=== PATIENT | female | born 1990 | race Two or more races ===

== ENCOUNTER 2019-06-25 19:14 | Emergency (ER) | payer MEDICAID, OTHER ==
[~2019-06-25] VITALS: Ht 157.5 cm; Wt 58.1 kg
[2019-06-25] MEDS ORDERED: diphenhydrAMINE HCL 50 MG/ML VIAL ONE (19:26)
[2019-06-25] MEDS ORDERED: OLANZAPINE 10 MG VIAL IM ONE ×2 (19:27→19:30)
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
[2019-06-25] MEDS ORDERED: diphenhydrAMINE HCL 50 MG/ML VIAL IM ONE (19:30)
[2019-06-25 20:00] LABS: BASOPHILS % (AUTO) 0.3 % (0.0-2.0); EOSINOPHILS % (AUTO) 1.2 % (0.0-6.0); HEMATOCRIT 42 % (33-45); HEMOGLOBIN 14.2 g/dL (11.5-14.8); LYMPHOCYTES # (AUTO) 1.5 /CMM (0.8-4.8); LYMPHOCYTES % (AUTO) 16.7 % (20.0-44.0); MEAN CORPUSCULAR HGB CONC 34 g/dl (31.0-36.0); MEAN CORPUSCULAR VOLUME 92 fL (82-100); MONOCYTES # (AUTO) 0.4 /CMM (0.1-1.30); MONOCYTES % (AUTO) 4.1 % (2.0-12.0); NEUTROPHILS % (AUTO) 77.7 % (43.0-81.0); PLATELET COUNT (AUTO) 307 /CMM (150-450)
[2019-06-25 20:05] LABS: APPEARANCE,URINE Slightly Cloudy (CLEAR); BILIRUBIN,URINE Negative (NEGATIVE); BLOOD, URINE Moderate Ery/uL (NEGATIVE); KETONES,URINE Negative (NEGATIVE); LEUKOCYTE ESTERASE ,URINE Trace (NEGATIVE); NITRITE, URINE Negative (NEGATIVE); PROTEIN,URINE Negative (NEGATIVE); UGLUCOSE Negative (NEGATIVE); UROBILINOGEN,URINE 0.2 EU/dL (0.2)
[2019-06-25 20:06] LABS: COLOR,URINE YELLOW (YELLOW)
[2019-06-25 20:14] LABS: WBC,URINE 0-2 /HPF (0-3)
[2019-06-25 20:15] LABS: BACTERIA,URINE 1+ /HPF (None Seen); SQUAMOUS EPITHELIAL CELL,UR Moderate /HPF (None Seen)
[2019-06-25 20:26] LABS: CALCIUM, SERUM 8.1 mg/dL (8.5-10.1); CREATININE 1.1 mg/dL (0.6-1.3); POTASSIUM 3.3 mmol/L (3.5-5.1)
[2019-06-25 20:32] LABS: ALBUMIN 4.3 g/dL (3.4-5.0); BILIRUBIN,DIRECT 0.1 mg/dL (0.0-0.2); BILIRUBIN,TOTAL 0.2 mg/dL (0.2-1.0); SALICYLATE 2.7 mg/dL (2.8-20.0); TOTAL PROTEIN, SERUM 7.3 g/dL (6.4-8.2)
--- NOTE | 2019-06-25 21:11 | NUR ---
BOYFRIEND ZONIA CORDERO CAN BE REACHED AT
[2019-06-25] MEDS ORDERED: LORAZEPAM INJ 2 MG/ML VIAL ONE (21:29)
[2019-06-25] MEDS ORDERED: LORAZEPAM INJ 2 MG/ML VIAL IM ONE (21:30)
[2019-06-25 23:23] VITALS: BP 112/60
--- NOTE | 2019-06-25 23:23 | NUR ---
PT TAKEN IN CUSTODY BY [employer], LEFT IN STABLE CONDITION, VSS, NAD NOTED. ALL PAPERWORK GIVEN TO [employer] OFFICERS.
== END 2019-06-25 23:24 ==
LOC: EDBD 19:14 → ER 21:20
DX: F10.129 Alcohol abuse with intoxication, unspecified (principal); Y90.8 Blood alcohol level of 240 mg/100 ml or more
CPT/HCPCS: 36415; 80048; 80076; 80305; 80307; 80329; 81001; 84703; 85025; 96372 ×2; 99283; G0480; J1200; J2060; J3490; 81000-TC